=== PATIENT | female | born 1955 | race Caucasian/White ===

== ENCOUNTER → 2016-09-02 | Outpatient (CLI) | payer OTHER | LOC: RAD 07:35 | DX: Z12.31 Encounter for screening mammogram for malignant neoplasm of breast (principal) ==

== ENCOUNTER → 2017-03-31 | Outpatient (CLI) | payer OTHER ==
--- NOTE | ~2017-03-31 | EKG ---
[address] [address] ELECTROCARDIOGRAM REPORT Name: GABY HOWEARA JARROD Room #: REG CLI Enrique#: [id number] Admission: 03/31/17 Attend Phys: Physician not on staff Discharge: Date of : 55 Report #: [id number] [facility] RE[facility] FOR: //name// [facility] Test Date: 2017-03-31 Test Time: 09:09:49 Pat Name: JUAN DIEGO HOWE Department: Room: Gender: F Digester Hand: Priscilla GROVES : 1955 Requested By: Physician staff Order Number: [id number] MD: Bandar Hernadez Measurements Intervals [place] Rate: 51 P: 82 CO: 142 QRS: 80 QRSD: 100 T: 58 QT: 451 QTc: 416 Interpretive Statements Sinus rhythm No previous ECG available for comparison Electronically Signed On 04-02-2017 12:15:17 SERVICE NOW DEVELOPER by Bandar Hernadez [email or web address] <ELECTRONICALLY SIGNED> By: Bandar Hernadez MD 04/02/17 1215 0909 0909 Bandar Hernadez MD /CASTRO
== END ==
LOC: ULTRA 07:45 → CV 07:45
DX: Z00.01 Encounter for general adult medical examination with abnormal findings (principal); M81.0 Age-related osteoporosis without current pathological fracture; M85.80 Other specified disorders of bone density and structure, unspecified site; N91.2 Amenorrhea, unspecified; R10.9 Unspecified abdominal pain; Z78.0 Asymptomatic menopausal state

== ENCOUNTER → 2017-09-22 | Outpatient (CLI) | payer OTHER | LOC: RAD 08:00 | DX: Z12.31 Encounter for screening mammogram for malignant neoplasm of breast (principal); R92.1 Mammographic calcification found on diagnostic imaging of breast ==

== ENCOUNTER 2018-06-07 12:10 | Emergency (ER) | payer OTHER ==
[~2018-06-07] VITALS: Ht 165.1 cm; Wt 60.3 kg
[2018-06-07] MEDS ORDERED: ASPIR 8181 M1 PO (14:50)
[2018-06-07] MEDS ORDERED: VITAMIN D5000 UNIT PO (14:50)
[2018-06-07] MEDS ORDERED: UNICOMPLEX M TA1 TA1 PO (14:51)
[2018-06-07] MEDS ORDERED: TUMS PO (14:51)
[2018-06-07] MEDS ORDERED: NORCO 5-325 TA1 EACH PO (15:36)
[2018-06-07] MEDS ORDERED: IBUPROFEN 800800 MG PO (15:36)
[2018-06-07 16:09] VITALS: BP 114/66
[2018-06-07 16:57] LABS: AMP/METHAMP Negative (Negative); BARBITURATES Negative (Negative); BENZODIAZEPINES Negative (Negative); COCAINE Negative (Negative); METHADONE Negative (Negative); OPIATES Negative (Negative); PCP Negative (Negative)
--- NOTE | 2018-06-08 09:38 | EKG ---
[place] [address] [facility] [place] [address] ELECTROCARDIOGRAM REPORT Name: JUAN DIEGO HOWE [facility] [id number] Admission: 06/07/18 Attend Phys: Discharge: 06/07/18 Date of : 55 Report #: [id number] THIS REPORT FOR: //name// [facility] ED Test Date: 2018-06-07 Test Time: 13:01:25 Pat Name: JUAN DIEGO HOWE Department: Room: Gender: F Refining Equipment Operator: DEENAMilind : 1955 Requested By: Len Underwood Order Number: [id number] MD: Hari Canseco Measurements Intervals [place] Rate: 65 P: 81 NM: 162 QRS: 89 QRSD: 131 T: 67 QT: 424 QTc: 441 Interpretive Statements Sinus rhythm No significant abnormality Compared to ECG 03/31/2017 09:09:49 Sinus bradycardia no longer present Electronically Signed On 06-08-2018 9:38:07 DIRECTOR ASSET by Hari Canseco [email or web address] <ELECTRONICALLY SIGNED> By: Hari Canseco MD, [facility] 06/08/18 0938 1301 1301 Hari Canseco MD, FACC /EPI
[2018-06-09] MEDS ORDERED: CALCIUM 500 +1 EAC5 PO (11:30)
[2018-06-09] MEDS ORDERED: NORCO 5-325 TA1 EACH PO (11:42)
[2018-06-09] MEDS ORDERED: IBUPROFEN 800800 M1 PO (11:43)
== END 2018-06-07 16:19 | disposition home or self-care (01) ==
LOC: ER 12:10
PROVIDERS: Emergency Medicine
DX: S82.842A Displaced bimalleolar fracture of left lower leg, initial encounter for closed fracture (principal); Z88.5 Allergy status to narcotic agent; Z88.1 Allergy status to other antibiotic agents; W00.0XXA Fall on same level due to ice and snow, initial encounter; Y92.89 Other specified places as the place of occurrence of the external cause; Y93.89 Activity, other specified; Y99.8 Other external cause status

== ENCOUNTER 2018-06-12 05:22 | Day surgery (SDC) | payer OTHER ==
[~2018-06-12] VITALS: Ht 165.1 cm; Wt 60.3 kg
--- NOTE | ~2018-06-12 | O ---
[facility] [place] [address] OPERATIVE REPORT Name: JUAN DIEGO HOWE Room #: 150-3 [facility]..#: [id number] Admission: 06/12/18 Attend Phys: Sam Mckeon MD Discharge: Date of : 55 Report #: [id number] THIS REPORT FOR: //name// CC: Sam Garnermez DATE OF SERVICE: 06/12/2018 PREOPERATIVE DIAGNOSIS: Left ankle bimalleolar fracture equivalent. POSTOPERATIVE DIAGNOSIS: Left ankle bimalleolar fracture equivalent. PROCEDURE: Left ankle open reduction internal fixation. SURGEON: Sam Mckeon M.D. MARKETING DEVELOPMENT MANAGER: Maryjane Genao. ANESTHESIA: General. ESTIMATED BLOOD LOSS: Minimal. DRAINS: None. TOURNIQUET TIME: 45 minutes. DESCRIPTION OF PROCEDURE: The patient was brought to the operating room where she was placed under general anesthesia. Once under adequate general anesthesia, her left lower extremity was prepped and draped in sterile manner. The extremity was elevated, exsanguinated, tourniquet placed to 300 mmHg. A lateral incision approximately 6 cm in length was made over the distal fibula to dissect down through the soft tissue to the fracture site, and hematoma was evacuated from the fracture site. A bone reduction clamp was placed to reduce the fracture. Once reduced, subsequent provisional fixation was achieved with a single 3.5 mm screw placed in lag mode. A 6-hole 1/3 tubular plate was then placed along the posterolateral aspect of the fibula with fixation distally with two distal 4.0 cancellous fully threaded screws and proximally 3 cortical 3.5 mm screws. Excellent fixation and alignment were achieved in this manner. Once complete, the wound was irrigated copiously and fluoroscopy was used to verify the position to be satisfactory and the alignment to be anatomic. The posterior malleolar fracture was a small fracture, therefore, was not fixed at this point. The wound was irrigated copiously and closed with 2-0 Vicryl in subcutaneous tissues and roberto for the skin. The wounds were dressed with Xeroform, 4 x 4s and sterile soft compressive dressing with a short leg cast was placed. Tourniquet was let down approximately 45 minutes. Toes were pink and warm with good capillary refill. There were no complications from the procedure. The [address] [address] OPERATIVE REPORT Name: JUAN DIEGO HOWEN Room #: 150-3 [facility] M.R.#: [id number] Admission: 06/12/18 Attend Phys: Sam Mckeon MD Discharge: Date of : 55 Report #: [id number] patient tolerated the procedure well and went to the recovery room without incident. By: 0810 0838 Sam Mckeon MD /nt
[~2018-06-12 05:22] MED LIST: ASPIR 8181 M1 PO; CALCIUM 500 +1 EAC5 PO; IBUPROFEN 800800 M1 PO; IBUPROFEN 800800 MG PO; NORCO 5-325 TA1 EACH PO; TUMS PO; UNICOMPLEX M TA1 TA1 PO; VITAMIN D5000 UNIT PO
[2018-06-12 07:00] VITALS: BP 114/66
[2018-06-12] MEDS ORDERED: PERCOCET 7.5-31 EACH PO (08:02)
[2018-06-12] MEDS ORDERED: ASA5UEC PO (08:03)
[2018-06-12 08:30] VITALS: BP 114/66
== END 2018-06-12 10:35 | disposition home or self-care (01) ==
LOC: OR 05:22 → TBA 05:23 → PRE 09:50 → EDSTATUS 09:51 → OR 09:53
DX: S82.842A Displaced bimalleolar fracture of left lower leg, initial encounter for closed fracture (principal); Z79.82 Long term (current) use of aspirin; Z79.899 Other long term (current) drug therapy; Z85.820 Personal history of malignant melanoma of skin; Z98.890 Other specified postprocedural states; Z88.8 Allergy status to other drugs, medicaments and biological substances; X58.XXXA Exposure to other specified factors, initial encounter; Y93.89 Activity, other specified; Y92.89 Other specified places as the place of occurrence of the external cause; Y99.8 Other external cause status
CPT/HCPCS: 50010; 50101; 50343; 50386; 51131; 51412; 54330; 56524; 56525; 56667; 57091; 57180; 62110; 62900; 70005

== ENCOUNTER → 2018-09-01 | Outpatient (CLI) | payer OTHER ==
[~2018-09-01] VITALS: Ht 165.1 cm; Wt 59.0 kg
[~2018-09-01] MED LIST changes: +ASA5UEC PO; +PERCOCET 7.5-31 EACH PO
--- NOTE | ~2018-09-01 | P ---
[facility] [address] PROCEDURE REPORT Name: SHYAMJUAN DIEGO GARAY [id number] Admission: 09/01/18 ������������������ Attend Phys: Kirk Ferraro Discharge: ������������������ Date of : 55 Report #: [id number] THIS REPORT FOR: //name// CC: Kirk Salgado MD DATE OF SERVICE: 09/01/2018 PROCEDURE PERFORMED: Colonoscopy. HISTORY OF PRESENT ILLNESS: The patient is a 63-year-old female with a history of colon polyps, here for a 5-year followup. She has a family history of colon cancer in her mother and her aunt, both in their 40s. She denies any symptoms. She had genetic testing that was reportedly negative. DESCRIPTION OF PROCEDURE: The risks and benefits of the procedure were explained to the patient, those risks including but not limited to bleeding, perforation and the risk of sedation. She understood these risks and gave informed consent. Sedation was given using propofol per Anesthesia. Next, a digital rectal exam was initially performed, which was normal. Next, using a standard Olympus colonoscope, the scope was placed in the patient's anus and advanced under direct vision to the cecum. The overall prep was excellent. The cecum and ileocecal valve were normal in appearance. Ascending, transverse, descending and sigmoid colon were all normal. The rectal mucosa was normal. On retroflexion, no abnormalities were noted. The scope was then withdrawn and the procedure terminated. The patient tolerated the procedure well. IMPRESSION: Normal colonoscopy. RECOMMENDATIONS: Repeat colonoscopy in 5 years due to family history of colon cancer. Thank you for allowing me to participate in her care. ��������������������������������������������� ���������������������������������������� By: ��������������������������������������������� 0939 0102 Kirk Poole MD /nt
== END | disposition home or self-care (01) ==
LOC: GI 07:16
DX: Z12.11 Encounter for screening for malignant neoplasm of colon (principal); Z86.010 Personal history of colon polyps; Z80.0 Family history of malignant neoplasm of digestive organs; Z85.820 Personal history of malignant melanoma of skin; Z98.890 Other specified postprocedural states; Z88.6 Allergy status to analgesic agent; Z88.1 Allergy status to other antibiotic agents; Z79.82 Long term (current) use of aspirin; Z79.899 Other long term (current) drug therapy
CPT/HCPCS: 62110; 62900

== ENCOUNTER → 2018-10-19 | Outpatient (CLI) | payer OTHER | LOC: RAD 09:47 | DX: Z12.31 Encounter for screening mammogram for malignant neoplasm of breast (principal) ==

== ENCOUNTER → 2018-12-05 | Outpatient (CLI) | payer OTHER | LOC: RAD 14:43 | DX: M17.11 Unilateral primary osteoarthritis, right knee (principal) ==

== ENCOUNTER → 2019-01-17 | Outpatient (CLI) | payer OTHER | LOC: MRI 07:10 | DX: S83.221A Peripheral tear of medial meniscus, current injury, right knee, initial encounter (principal); M71.21 Synovial cyst of popliteal space [Baker], right knee; X58.XXXA Exposure to other specified factors, initial encounter; Y93.89 Activity, other specified; Y92.89 Other specified places as the place of occurrence of the external cause; Y99.8 Other external cause status ==

== ENCOUNTER 2019-05-25 10:38 | Day surgery (SDC) | payer OTHER ==
[~2019-05-25] VITALS: Ht 165.1 cm; Wt 59.9 kg
--- NOTE | ~2019-05-25 | O ---
[facility] [place] [address] OPERATIVE REPORT Name: JUAN DIEGO HOWE Room #: 150-1 [facility] M.R.#: [id number] Admission: 05/25/19 Attend Phys: Sma Mckeon MD Discharge: Date of : 55 Report #: [id number] THIS REPORT FOR: //name// CC: Sam Salgado DATE OF SERVICE: 05/25/2019 PREOPERATIVE DIAGNOSIS: Left ankle retained painful hardware. POSTOPERATIVE DIAGNOSIS: Left ankle retained painful hardware. PROCEDURE: Left ankle hardware removal. SURGEON: Dr. Sam Mckeon. SPECIAL OFFICER: Maryjane Genao. ANESTHESIA: General. ESTIMATED BLOOD LOSS: Minimal. DRAINS: No drains. TOURNIQUET TIME: 15 minutes. DESCRIPTION OF PROCEDURE: The patient was brought to the operating room where she was placed under general anesthesia. Once under adequate general anesthesia, her left lower extremity was prepped and draped in sterile manner. The extremity was elevated, exsanguinated, tourniquet placed 300 to mmHg. Utilizing fluoroscopy for guidance, two 1 cm incisions were made laterally over the plate and screws at the distal fibula; through each of these small incisions, the screw heads were identified and subsequently extracted including the lag screw that was across the fracture site. This was localized under fluoroscopy and once localized extracted with a small fragment screwdriver as well. A Ruby elevator was then used to elevate the plate off the bone and the plate was then extracted through the proximal screw hole. Once complete, the wound was irrigated copiously and closed with 2-0 Vicryl in subcutaneous tissues and roberto for the skin. Wound was dressed with Xeroform, 4 x 4s, and a sterile soft compressive dressing was placed. Tourniquet was let down at 15 minutes. Toes were pink and warm with good capillary refill. There were no [facility] [address] [place] [address] OPERATIVE REPORT Name: JUAN DIEGO HOWE Room #: 150-1 [facility].#: [id number] Admission: 05/25/19 Attend Phys: Sam Mckeon MD Discharge: Date of : 55 Report #: [id number] complications from the procedure. The patient tolerated the procedure well and went to recovery room without incident. By: 1306 1323 Sam Mckeon MD /nt
[~2019-05-25 10:38] MED LIST changes: +ADVIL200 M1 PO; +STOOL SOFTENER100 M1 PO; +TYLENOL325 M1 PO; +VITAMIN D35000 UNI2 PO
[2019-05-25 11:30] VITALS: BP 113/76
[2019-05-25 13:35] VITALS: BP 113/76
== END 2019-05-25 14:10 | disposition home or self-care (01) ==
LOC: OR 10:38 → TBA 10:44 → OR 11:09
DX: T84.84XA Pain due to internal orthopedic prosthetic devices, implants and grafts, initial encounter (principal); M25.572 Pain in left ankle and joints of left foot; Z98.890 Other specified postprocedural states; Z85.820 Personal history of malignant melanoma of skin; Z79.899 Other long term (current) drug therapy; Z79.82 Long term (current) use of aspirin; Z88.6 Allergy status to analgesic agent; Z88.8 Allergy status to other drugs, medicaments and biological substances
CPT/HCPCS: 50010; 50101; 50386; 56526; 57091; 57103; 57179; 62110; 62900; 70005

== ENCOUNTER → 2020-01-25 | Outpatient (CLI) | payer OTHER ==
[2020-01-25 08:21] LABS: ABSOLUTE NEUTROPHILS 4.3 thou/uL (1.4-8.2); BASOPHILS 0.6 % (0.0-2.0); EOSINOPHILS 0.8 % (0.0-3.0); HEMATOCRIT 46.1 % (37.0-47.0); HEMOGLOBIN 15.5 gm/dL (12.0-15.0); LYMPHOCYTES 23.3 % (24.0-44.0); MCH 31.1 pg (26.0-34.0); MCHC 33.7 g/dL (28.0-37.0); MCV 92.1 fL (80.0-100.0); MONOCYTES 8.1 % (1.0-8.0); PLATELET COUNT 206 thou/uL (150-400); POLYS 67.2 % (36.0-66.0); RDW 12.6 % (10.5-14.5); WBC 6.4 thou/uL (4.0-11.0)
[2020-01-25 08:43] LABS: ALBUMIN 4.4 g/dL (3.4-5.0); ANION GAP 7 mmol/L (7-16); BUN 13 mg/dL (7-18); CALCIUM 9.4 mg/dL (8.5-10.1); CHLORIDE 104 mmol/L (98-107); CHOLESTEROL 193 mg/dL (<200); CO2 30 mmol/L (21-32); CREATININE 0.9 mg/dL (0.6-1.0); GLUCOSE 107 mg/dL (74-106); HDL CHOLESTEROL 105 mg/dL (>40); LDL CHOLESTEROL 72 mg/dL (<100); SGOT 25 U/L (15-37); SGPT 22 U/L (30-65); SODIUM 141 mmol/L (136-145); TC:HDL 1.8 Ratio (Not establshd); TOTAL BILIRUBIN 0.9 mg/dL (0.2-1.0); TOTAL PROTEIN 7.4 g/dL (6.4-8.2); TRIGLYCERIDE 80 mg/dL (<150); VLDL 16 mg/dL (<40)
== END ==
LOC: LABMALL 06:24
PROVIDERS: ATTEND Nurse Practitioner
DX: Z00.00 Encounter for general adult medical examination without abnormal findings (principal); Z13.220 Encounter for screening for lipoid disorders

== ENCOUNTER → 2020-04-15 | Outpatient (CLI) | payer OTHER | LOC: LAB 09:49 | PROVIDERS: ATTEND Nurse Practitioner | DX: U07.1 COVID-19 (principal) ==

== ENCOUNTER → 2020-12-23 | Outpatient (CLI) | payer OTHER, MEDICARE | LOC: BC 09:48 | PROVIDERS: ATTEND Nurse Practitioner | DX: Z12.31 Encounter for screening mammogram for malignant neoplasm of breast (principal) ==